=== PATIENT | female | born 1960 | race Caucasian/White ===

== ENCOUNTER 2024-12-31 09:54 | Outpatient (REF) | payer OTHER, SELFPAY ==
--- OUTSIDE RECORDS SUMMARY | 2023-11-14 10:56 | XMS_ITS | Encounter Summary ---
Author Organization [facility] Address [address] [place] [address] Care Team Providers Care Resident Associate Name Role Phone Tyron Chopra MD Primary Care Provider + Encounter Details Date Type Department Care Team (Late st Contact Info) Description 11/14/2023 10:56 AM EDT Hospital Encounter [facility] [address] [place] [phone] Khari Syed MD [address] [place] [id number] Social History Tobacco Use Types Packs/Day Years Used Date Smoking Tobacco: Never Smokeless Tobacco: Never Comments Unknown Sex and Gender Information Value Date Recorded Sex Assigned at Not on file Legal Sex Female 5:12 PM EDT Gender Identity Not on file Sexual Orientation Not on file documented as of this encounter Plan of Treatment Not on file documented as of this encounter Procedures Procedure Name Priority Date/Time Associated Diagnosis Comments XR CHEST 2 VIEWS Routine 11/14/2023 11:0 0 AM EDT Productive cough documented in this encounter Results * XR Chest 2 views (11/14/2023 11:00 AM EDT) Anatomical Region Laterality Modality Chest Computed Radiogr aphy 11/14/2023 11:0 8 AM EDT Impressions 11/14/2023 11:09 AM EDT No acute infiltrate Narrative 11/14/2023 11:09 AM EDT EXAM: XR CHEST 2 VIEWS on 11/14/2023 10:56 AM CLINICAL HISTORY: XIN READ is a 63 years old patient with a submitted history of Productive cough x 2 days; URI symtpoms 2 weeks. ADDITIONAL HISTORY: Productive cough COMPARISONS: None TECHNIQUE: 2 views of the chest performed. FINDINGS: The cardiac size is within normal limits No airspace consolidation No pleural effusions Procedure Note Vaughn Simmons MD - 11/14/2023 EXAM: XR CHEST 2 VIEWS on 11/14/2023 10:56 AM CLINICAL HISTORY: XIN READ is a 63 years old patient with a submitted history ofProductive cough x 2 days; URI symtpoms 2 weeks. ADDITIONAL HISTORY: Productive cough COMPARISONS: None TECHNIQUE: 2 views of the chest performed. FINDINGS: The cardiac size is within normal limits No airspace consolidation No pleural effusions IMPRESSION: No acute infiltrate Grazyna Jacob APRN IMG DIAGNOSTIC IMAGING O RDERABLES Final Result documented in this encounter Visit Diagnoses Not on filedocumented in this encounter Care Teams Resident Associate Relationship Specialty Start Date End Date Tyron Chopra MD [address] [place] [address] [address] [place] [address] PCP - General 10/03/23 documented as of this encounter"
--- NOTE | 2024-12-31 | EMG_ITS ---
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 Tibial H responses were obtained. Bilateral superficial peroneal, sural, and median and lateral mixed plantars sensory studies were obtained an EMG needle examination was performed. Bilateral mixed plantars sensory amplitudes were somewhat diminished with normal conduction velocities. Otherwise no significant abnormality of nerve conduction study or EMG was noted. 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
--- OUTSIDE RECORDS SUMMARY | 2024-12-31 10:57 | XMS_ITS | Encounter Summary ---
Author Organization [facility] Address [address] [place] [address] Care Team Providers Care Paper Core Machine Operator Name Role Phone Tyron Chopra MD Primary Care Provider + Encounter Details Date Type Department Care Team (Late st Contact Info) Description 11/14/2023 Scanned Document [address] [phone] Provider, Generic Social History Tobacco Use Types Packs/Day Years Used Date Smoking Tobacco: Never Smokeless Tobacco: Never Comments Unknown Sex and Gender Information Value Date Recorded Sex Assigned at Not on file Legal Sex Female 5:12 PM EDT Gender Identity Not on file Sexual Orientation Not on file documented as of this encounter Plan of Treatment Not on file documented as of this encounter Visit Diagnoses Not on filedocumented in this encounter Care Teams Paper Core Machine Operator Relationship Specialty Start Date End Date Tyron Chopra MD [address] [place] [address] [address] [place] [address] PCP - General 10/03/23 documented as of this encounter
--- OUTSIDE RECORDS SUMMARY | 2024-12-31 10:57 | XMS_ITS | Clinical Summary ---
Author Organization [facility] Address [address] [place] [address] Care Team Providers Care Personal Support Worker Name Role Phone Tyron Chopra MD Primary Care Provider + Allergies No known active allergies Medications metFORMIN (GLUCOPHAGE) 1000 MG tablet Take 1,000 mg by mouth 2 (two) times a day. 4 Active Skyrizi Pen 150 MG/ML Solution Auto-injector 4 Active erythromycin (ILOTYCIN) ophthalmic ointmentIndication s:Corneal abrasion, right, initial encounter,Foreign body of right eye, initial encounter Administer 1 application(s) to the right eye 4 (four) times a day. 3.5 g 4 Active clobetasol (TEMOVATE) 0.05 % cream Active Zoryve 0.3 % Foam Apply TO SCALP ONCE daily] 4 Active proMETHAZINE-dextr omethorphan (proMETHAZINE-DM) 6.25-15 MG/5ML syrupIndications:P roductive cough Take 5 mL by mouth every 4 (four) hours as needed for cough. 120 mL 4 Active predniSONE (DELTASONE) 20 MG tabletIndications: Productive cough Take 2 tablets (40 mg total) by mouth daily. With food. 10 tablet 4 Active fluticasone (FloNASE) 50 mcg/spray nasal sprayIndications:P roductive cough 1 spray into each nostril daily. 1 each 4 Active ondansetron (ZOFRAN-ODT) 4 MG disintegrating tabletIndications: Gastroenteritis Take 1 tablet (4 mg total) by mouth 3 times daily (every 8 hours) as needed for nausea or vomiting. Place tablet on tongue to dissolve. 20 tablet Active loperamide (IMODIUM A-D) 2 MG capsuleIndications :Gastroenteritis Take 1 capsule (2 mg total) by mouth 4 (four) times a day as needed for diarrhea. 30 capsule Active Active Problems No known active problems Immunizations Immunization Administration Dates Next Due Tdap 10/03/2023 Social History Tobacco Use Types Packs/Day Years Used Date Smoking Tobacco: Never Smokeless Tobacco: Never Tobacco Cessation:Counseling Given: Not Answered Comments Unknown Sex and Gender Information Value Date Recorded Sex Assigned at Not on file Legal Sex Female 5:12 PM EDT Gender Identity Not on file Sexual Orientation Not on file Last Filed Vital Signs Vital Sign Reading Time Taken Comments Blood Pressure 138/91 07/28/2024 11:43 AM EDT Pulse 68 07/28/2024 11:43 AM EDT Temperature 36.7 C (98 F) 07/28/2024 11:43 AM EDT Respiratory Rate 18 07/28/2024 11:43 AM EDT Oxygen Saturation 98% 07/28/2024 11:43 AM EDT Inhaled Oxygen Concentration - - Weight 86.2 kg (190 lb) 07/28/2024 11:43 AM EDT Height 157.5 cm (5' 2 ) 07/28/2024 11:43 AM EDT Body Mass Index 34.75 07/28/2024 11:43 AM EDT Plan of Treatment Health Maintenance Due Date Last Done Comments Hepatitis C Virus Screening 1962 Quantiferon Gold TB 02/25/1972 HIV Screening 1975 Pap Smear (Ages 21-65) 1983 Mammogram 2002 Colonoscopy 2007 Pneumococcal Vaccines 50+ (1 of 1 - PCV) 02/25/2012 Zoster (Shingles) Vaccine (1 of 2) 02/25/2012 Influenza Vaccine 10/31/2024 COVID-19 Vaccine (1 - 2023-2 5 season) 2024 DTaP/Tdap/Td Vaccines (2 - T d or Tdap) 10/02/2033 10/03/2023 RSV Vaccine 60 years and old er and Patients (1 - 1-dose 75+ series) 2037 Hepatitis B Vaccines Aged Out No long er eligible based on patient's age to complete this topic Insurance [facility] [employer] Care Teams Personal Support Worker Relationship Specialty Start Date End Date Tyron Chopra MD [address] [facility] [address] [place] [address] PCP - General 10/03/23
--- OUTSIDE RECORDS SUMMARY | 2024-12-31 10:57 | XMS_ITS | Encounter Summary ---
Author Organization [facility] Address [address] [place] [address] Care Team Providers Care Supervisor Plate Pasting Name Role Phone Tyron Chopra MD Primary Care Provider + Encounter Details Date Type Department Care Team (Late st Contact Info) Description 07/28/2024 Scanned Document [address] [phone] Provider, Generic Social History Tobacco Use Types [...] on filedocumented in this encounter Care Teams Supervisor Plate Pasting Relationship Specialty Start Date End Date Tyron Chopra MD [address] [place] [address] [address] [place] [address] PCP - General 10/03/23 documented as of this encounter
--- OUTSIDE RECORDS SUMMARY | 2024-12-31 10:57 | XMS_ITS | Encounter Summary ---
Author Organization [facility] Address [address] [place] [address] Care Team Providers Care Diploma Medical Assistant Name Role Phone Tyron Chopra MD Primary Care Provider + Encounter Details Date Type Department Care Team (Late st Contact Info) Description 07/28/2024 Scanned Document [address] [phone] Provider, Generic Social History Tobacco Use Types [...] on filedocumented in this encounter Care Teams Diploma Medical Assistant Relationship Specialty Start Date End Date Tyron Chopra MD [address] [place] [address] [address] [place] [address] PCP - General 10/03/23 documented as of this encounter
--- OUTSIDE RECORDS SUMMARY | 2024-12-31 10:57 | XMS_ITS ---
[facility] Name [facility] History of Medication Use Medication Directions Dispensed Refills Start Date End Date Stat us loperamide (IMODIUM A-D) 2 MG capsule Take 1 capsule (2 mg total) by mouth 4 (four) times a day as needed for diarrhea. 07/28/2024 active ondansetron (ZOFRAN-ODT) 4 MG disintegrating tablet Take 1 tablet (4 mg total) by mouth 3 times daily (every 8 hours) as needed for nausea or vomiting. Place tablet on tongue to dissolve. 07/28/2024 active Skyrizi Pen 150 MG/ML Subcutaneous Solution Auto-injector Skyrizi Pen 150 MG/ML Subcutaneous Solution Auto-injector QTY: 1 Days: 84 Refills: 0 Written: 05/05/24 Patient Instructions: 05/05/2024 active metFORMIN HCl 1000 MG Oral Tablet metFORMIN HCl 1000 MG Oral Tablet QTY: 180 tablet Days: 90 Refills: 0 Written: 04/20/24 Patient Instructions: 04/20/2024 active predniSONE (DELTASONE) 20 MG tablet Take 2 tablets (40 mg total) by mouth daily. With food. 11/14/2023 11/20/2023 active proMETHAZINE-dextrome thorphan (proMETHAZINE-DM) 6.25-15 MG/5ML syrup Take 5 mL by mouth every 4 (four) hours as needed for cough. 11/14/2023 active Skyrizi Pen 150 MG/ML Solution Auto-injector 07/16/2023 active metFORMIN (GLUCOPHAGE) 1000 MG tablet Take 1,000 mg by mouth 2 (two) times a day. 07/12/2023 active Allergies Allergen Reaction Severity Comment Documented Date Source Statu s NO KNOWN ALLERGIES [facility] Problems Problem Status Onset Date Problem Type Date of Resolution Source Gastroenteritis active EncounterDiagnosisAct [facility] Psoriasis (disorder) active 2024-05-09 ProblemAct [facility] Celiac disease (disorder) active 2024-05-09 ProblemAct [facility] Immunizations Vaccine Date Source Lot Number Status Tdap 10/03/2023 [facility] [id number] completed Encounters Encounter Type Encounter Reason Primary Diagnosis Location Date Ambulatory Diarrhea Diarrhea [facility] 07/28/2024 Ambulatory Pain in left knee Pain in left knee [facility] 06/06/2024 Ambulatory [facility] 05/09/2024 Ambulatory [facility] 11/14/2023 Ambulatory Other specified cough Other specified cough [facility] 11/14/2023 Ambulatory Insect Bite Insect Bite [facility] 10/03/2023 Ambulatory Insect bite (nonvenomous) of left back wall of thorax, initial encounter Insect bite (nonvenomous) of left back wall of thorax, initial encounter [facility] 08/08/2023 Care Team Organization Name Specialty Phone Email Start Date End Da te [facility] 07/29/2024 025 [facility] 06/11/2024 [facility] 10/04/2023 [facility] 10/03/2023 [facility] 08/09/2023 08/27/2024 [facility] NO PCP Primary Care 08/08/2023 [facility] 08/08/2023
--- OUTSIDE RECORDS SUMMARY | 2024-12-31 10:57 | XMS_ITS | Encounter Summary ---
Author Organization [facility] Address [address] [place] [address] Care Team Providers Care Store Merchandiser Name Role Phone Tyron Chopra MD Primary Care Provider + Encounter Details Date Type Department Care Team (Late st Contact Info) Description 11/14/2023 Scanned Document [address] [phone] Provider, Generic Social History Tobacco Use Types [...] on filedocumented in this encounter Care Teams Store Merchandiser Relationship Specialty Start Date End Date Tyron Chopra MD [address] [place] [address] [address] [place] [address] PCP - General 10/03/23 documented as of this encounter
== END 2024-12-31 09:55 | disposition home or self-care (01) ==
LOC: HO.NEURO 09:54
PROVIDERS: PCP Internal Medicine; Visit Provider Internal Medicine
DX: M79.604 Pain in right leg (principal); M79.605 Pain in left leg
CPT/HCPCS: 95886; 95913

== ENCOUNTER → 2024-12-31 09:58 | Outpatient (BNV) | payer OTHER, SELFPAY | PROVIDERS: PCP Internal Medicine; Visit Provider Psychiatry & Neurology Neurology | DX: M79.661 Pain in right lower leg (principal); M79.662 Pain in left lower leg | CPT/HCPCS: 95886; 95913 ==